=== PATIENT | female | born 1945 | race Caucasian/White ===

== ENCOUNTER → 2017-08-01 | Outpatient (CLI) | payer MEDICARE ==
--- NOTE | 2017-08-01 18:04 | RADIOLOGY REPORT PS360 ---
MRI-C-SPINE W/O, MRI-3D RENDERING/MYELOGRAM Ordering Physician: Di Mendez MD Patient Age: 72 years: Female HISTORY: CERVICAL DISC DISEASE TECHNIQUE: . Sagittal STIR, T1, T2, axial T1 and T2. On 1.5T Siemens wide bore MRI. 3-D MR myelogram image set obtained & performed on MRI workstation. Additional sagittal thin section T2 weighted dataset obtained from this latter acquisition as well (---76 CPT) performed COMPARISON :No previous studies. FINDINGS Vertebral bodies appear intact. Cranial cervical junction intact. A C2/3. Disc intact C3/4. Mild central disc bulge minor uncovertebral joint hypertrophy bilateral. Early cervical spondylosis. Features narrow the central canal slightly. 9 mm AP midline. C 4/5. Disc space narrowing. Prominen diffuse posterior endplate hypertrophy. This broad base hard disc midline and becoming more evident right paracentral. This Continues lateral to encroach upon entry right foramen. It effaces the cervical cord midline and to the right. Central canal narrows less than 7 mm AP reflecting moderately pronounced central canal spinal stenosis C5-C6. Again disc space narrowing with prominent diffuse posterior endplate hypertrophic changes these are most evident midline and to the right with a flattened and effaced cervical cord just both midline and to the right, yielding fairly pronounced central canal stenosis. Central canal measures just over.6 mm AP C6/7. Mild disc space narrowing prominent right paracentral hard disc flattens/effaces the right corner and far right aspect of the cervical cord... C7/T1. Modest hard disc to the right which mildly effaces the cervical cord to the right. Facet arthropathy. Is slight effacement upon the right aspect T1/T2.. Focal mixed mainly hard disc protrusion left paracentral indenting thecal sac and very slightly effacing left lateral aspect cervical cord at this level.. Small perineural cyst at the foramen T1/T2 3-D MR myelogram image set: nicely demonstrates a multilevel spinal stenosis most pronounced at C4/5 and C5-C6 to the right and to lesser degree C6/7 to the right. Mild indentation upon the thecal sac mainly at midline do mild central disc bulge/protrusion C3/4. . Multilevel moderate facet arthropathy. These features also encroach upon the foramen at some levels. Incidental prominent right jugulodigastric node measuring up to 15 mm x 9 mm with slightly smaller left jugulodigastric nodes but near the angle of mandible. Clinical history required IMPRESSION: --------- . Multilevel spinal stenosis. Most pronounced C4/5, C5-C6 Prominent cervical spondylosis with prominent hard disc midline and to the right effaces the right aspect of the cervical cord at each of these levels and yields the moderate pronounced central canal stenosis... ... C6/7 with prominent hard disc to the right which effaces cervical cord to the right. Less pronounced central canal stenosis. ... T1/T2 with focal hard disc left paracentral. Indents thecal sac. ... Multilevel degenerative facet changes moderate ..Incidental note Generous slight enlarged jugulodigastric region lymph nodes at neck bilateral, more clinical correlation. If symptoms in this region consider CT neck with contrast follow-up
== END ==
LOC: RAD 15:42
DX: M50.90 Cervical disc disorder, unspecified, unspecified cervical region (principal)